=== PATIENT | female | born 1985 ===

== ENCOUNTER 2019-11-03 17:06 | Outpatient (CLI) | payer MEDICAID ==
[2019-11-03] MEDS ORDERED: ACETAMINOPHEN 500 MG TAB PO ONE (17:51)
[2019-11-03] MEDS ORDERED: LACTATED RINGERS 1,000 ML IV SCH (18:00)
[2019-11-03 19:05] VITALS: BP 144/80
== END 2019-11-03 19:30 | disposition home or self-care (01) ==
LOC: TRG 17:06 → APU 17:07 → TRG 19:30
PROVIDERS: ATTEND Obstetrics & Gynecology
DX: O47.1 False labor at or after 37 completed weeks of gestation (principal); O09.523 Supervision of elderly multigravida, third trimester; Z3A.38 38 weeks gestation of pregnancy
CPT/HCPCS: 59025; 96360; 96361; J7120